=== PATIENT | female | born 1940 | race Caucasian/White ===

== ENCOUNTER 2016-08-13 14:57 | Inpatient (IN) | payer MEDICARE, OTHER ==
[~2016-08-13] VITALS: Ht 165.1 cm; Wt 56.7 kg
[2016-08-13] MEDS ORDERED: ACETAMINOPHEN 325 MG TAB ONE (15:18)
[2016-08-13] MEDS ORDERED: SODIUM CHLORIDE 0.9% 1,000 ML ONE (15:27)
[2016-08-13] MEDS ORDERED: CEFTRIAXONE 1 GM VIAL ONE (17:01)
[2016-08-13] MEDS ORDERED: SODIUM CHLORIDE 0.9% 100 ML IV ONE (17:01)
[2016-08-13] MEDS ORDERED: SALINE FLUSH 10 ML FLUSH PRN (17:45)
[2016-08-13] MEDS ORDERED: GUAIFEN/DM 10 ML UDC PO PRN (17:45)
[2016-08-13] MEDS ORDERED: NITROGLYCERIN SL 0.4 MG TAB SL PRN (18:25)
[2016-08-13] MEDS: NEB-ALBUTEROL 2.5 MG/3 ML INH SCH ×2 (18:30→23:39)
[2016-08-13] MEDS: NEB-ATROVENT INH SCH ×2 (18:30→23:39)
[2016-08-13] MEDS ORDERED: MAGNESIUM SULF 1 GM/100 ML 100 ML IV SCH (19:00)
[2016-08-13] MEDS ORDERED: SODIUM CHLORIDE 0.9% 250 ML IV ONE (19:31)
[2016-08-13] MEDS ORDERED: SODIUM CHLORIDE 0.9% 500 ML IV ONE (19:31)
[2016-08-13] MEDS ORDERED: AZITHROMYCIN 500 MG VIAL IV ONE (19:31)
[2016-08-13] MEDS: SALINE FLUSH 10 ML FLUSH SCH (20:00)
[2016-08-13 20:57] VITALS: Ht 165.1 cm; Wt 56.7 kg
[2016-08-13 20:59] VITALS: BP_SYST 104; RESP 16; TEMP 98.5
[2016-08-13] MEDS: MAGNESIUM SULF 1 GM/100 ML 100 ML IV SCH ×2 (21:34→22:56)
[2016-08-13] MEDS: ACETAMINOPHEN 325 MG TAB PO PRN (22:52)
[2016-08-13] MEDS: SODIUM CHLORIDE 0.9% 1,000 ML IV SCH (23:00)
[2016-08-13] MEDS ORDERED: MISSING DOSE XX ONE (23:10)
[2016-08-13 23:11] VITALS: BP_SYST 104; RESP 16; TEMP 98.5
[2016-08-13 23:44] VITALS: RESP 18
[2016-08-14 03:00] VITALS: BP_SYST 122; RESP 18; TEMP 98.2
[2016-08-14] MEDS: SODIUM CHLORIDE 0.9% FLUSH BAG 500 ML IV SCH (04:05)
[2016-08-14] MEDS: TRAMADOL 50 MG TAB PO SCH ×3 (06:22→21:00)
[2016-08-14] MEDS ORDERED: ONDANSETRON 4 MG VIAL IV PUSH PRN (06:35)
[2016-08-14] MEDS ORDERED: ONDANSETRON 4 MG VIAL ONE (06:36)
[2016-08-14] MEDS: DILAUDID 1 MG/ML AMP IV PRN ×2 (06:43→14:52)
[2016-08-14 07:31] VITALS: BP_SYST 163; RESP 18; TEMP 99.4
[2016-08-14] MEDS: NEB-ALBUTEROL 2.5 MG/3 ML INH SCH ×3 (07:53→23:32)
[2016-08-14] MEDS: NEB-ATROVENT INH SCH ×3 (07:53→23:32)
[2016-08-14] MEDS: AZITHROMYCIN 500 MG in SODIUM CHLORIDE 0.9% 250 ML IV SCH (08:17)
[2016-08-14] MEDS: SALINE FLUSH 10 ML FLUSH SCH ×2 (08:17→20:00)
[2016-08-14] MEDS: ASPIRIN 81 MG CHEW TAB PO SCH (08:18)
[2016-08-14] MEDS: ENOXAPARIN 40 MG/0.4 ML SYR SUBQ SCH (08:18)
[2016-08-14] MEDS: CEFTRIAXONE 1 GM in SODIUM CHLORIDE 0.9% 50 ML IV SCH (09:43)
[2016-08-14] MEDS ORDERED: amLODIPine 10 MG TAB PO SCH (10:20)
[2016-08-14] MEDS ORDERED: ERGOCALCIFEROL 50,000 UNITS (1.25 MG) CAP PO SCH (10:21)
[2016-08-14 11:12] VITALS: BP_SYST 119; RESP 18; TEMP 98.7
[2016-08-14] MEDS: GABAPENTIN 100 MG CAP PO SCH (11:27)
[2016-08-14] MEDS: LISINOPRIL 20 MG TAB PO SCH (11:27)
[2016-08-14] MEDS: PAROXETINE HCL 20 MG TAB PO SCH (11:27)
[2016-08-14] MEDS: LIDOCAINE 2% VISC 15 ML UDC SWISH.SPIT SCH ×2 (11:27→16:00)
[2016-08-14] MEDS: amLODIPine 10 MG TAB PO SCH (12:00)
[2016-08-14] MEDS: SODIUM CHLORIDE 0.9% 1,000 ML IV SCH (14:24)
[2016-08-14 15:22] VITALS: BP_SYST 114; RESP 18; TEMP 98.5
[2016-08-14 19:21] VITALS: BP_SYST 132; RESP 18; TEMP 101.1
[2016-08-14] MEDS ORDERED: OPTIRAY 350 100 ML VIAL HMH IV ONE (20:03)
[2016-08-14] MEDS: clonazePAM 0.5 MG TAB PO SCH (21:00)
[2016-08-14] MEDS: GABAPENTIN 300 MG CAP PO SCH (21:32)
[2016-08-14] MEDS: MELOXICAM 7.5 MG TAB PO SCH (21:32)
[2016-08-14] MEDS: MIRTAZAPINE 15 MG TAB PO SCH (21:32)
[2016-08-14 23:05] VITALS: BP_SYST 105; RESP 20; TEMP 99.1
[2016-08-14] MEDS: ACETAMINOPHEN 325 MG TAB PO PRN (23:54)
[2016-08-15] MEDS: SODIUM CHLORIDE 0.9% FLUSH BAG 500 ML IV SCH
[2016-08-15 03:36] VITALS: BP_SYST 104; RESP 18; TEMP 98.3
[2016-08-15] MEDS: NEB-ALBUTEROL 2.5 MG/3 ML INH SCH ×4 (06:12→23:28)
[2016-08-15] MEDS: NEB-ATROVENT INH SCH ×4 (06:12→23:28)
[2016-08-15] MEDS: TRAMADOL 50 MG TAB PO SCH ×3 (08:09→12:07)
[2016-08-15] MEDS: ASPIRIN 81 MG CHEW TAB PO SCH (08:22)
[2016-08-15] MEDS: CEFTRIAXONE 1 GM in SODIUM CHLORIDE 0.9% 50 ML IV SCH (08:22)
[2016-08-15] MEDS: PAROXETINE HCL 20 MG TAB PO SCH (08:22)
[2016-08-15] MEDS: SALINE FLUSH 10 ML FLUSH SCH ×2 (08:23→20:07)
[2016-08-15] MEDS: LISINOPRIL 20 MG TAB PO SCH (08:24)
[2016-08-15] MEDS: LIDOCAINE 2% VISC 15 ML UDC SWISH.SPIT SCH ×3 (08:24→16:00)
[2016-08-15] MEDS: ENOXAPARIN 40 MG/0.4 ML SYR SUBQ SCH (08:25)
[2016-08-15 08:36] VITALS: BP_SYST 126; RESP 18; TEMP 99.9
[2016-08-15] MEDS: AZITHROMYCIN 500 MG in SODIUM CHLORIDE 0.9% 250 ML IV SCH (09:28)
[2016-08-15 11:27] VITALS: BP_SYST 100; RESP 18; TEMP 97.8
[2016-08-15] MEDS: amLODIPine 10 MG TAB PO SCH (12:00)
[2016-08-15] MEDS: GABAPENTIN 100 MG CAP PO SCH (12:06)
[2016-08-15 14:45] VITALS: BP_SYST 121; RESP 18; TEMP 98.6
[2016-08-15] MEDS ORDERED: MISSING DOSE XX ONE (17:30)
[2016-08-15] MEDS ORDERED: TRAMADOL 50 MG TAB PO SCH (17:40)
[2016-08-15] MEDS: SODIUM CHLORIDE 0.9% 1,000 ML IV SCH (17:44)
[2016-08-15] MEDS: clonazePAM 0.5 MG TAB PO SCH (20:06)
[2016-08-15] MEDS: MIRTAZAPINE 15 MG TAB PO SCH (20:06)
[2016-08-15] MEDS: MELOXICAM 7.5 MG TAB PO SCH (20:07)
[2016-08-15] MEDS: GABAPENTIN 300 MG CAP PO SCH (20:07)
[2016-08-15 20:32] VITALS: BP_SYST 140; RESP 18; TEMP 100
[2016-08-16 00:52] VITALS: BP_SYST 153; RESP 18; TEMP 101.3
[2016-08-16] MEDS: SODIUM CHLORIDE 0.9% FLUSH BAG 500 ML IV SCH (02:04)
[2016-08-16] MEDS: ACETAMINOPHEN 325 MG TAB PO PRN (02:04)
[2016-08-16 03:36] VITALS: BP_SYST 144; RESP 18; TEMP 100.8
[2016-08-16] MEDS: NEB-ALBUTEROL 2.5 MG/3 ML INH SCH ×2 (06:19→11:42)
[2016-08-16] MEDS: NEB-ATROVENT INH SCH ×2 (06:19→11:42)
[2016-08-16] MEDS: LIDOCAINE 2% VISC 15 ML UDC SWISH.SPIT SCH ×2 (06:44→10:30)
[2016-08-16 08:31] VITALS: BP_SYST 148; RESP 18; TEMP 98.7
[2016-08-16] MEDS: ASPIRIN 81 MG CHEW TAB PO SCH (08:46)
[2016-08-16] MEDS: PAROXETINE HCL 20 MG TAB PO SCH (08:46)
[2016-08-16] MEDS: SALINE FLUSH 10 ML FLUSH SCH (08:46)
[2016-08-16] MEDS: LISINOPRIL 20 MG TAB PO SCH (08:46)
[2016-08-16] MEDS: TRAMADOL 50 MG TAB PO SCH ×2 (08:49→12:44)
[2016-08-16] MEDS: ENOXAPARIN 40 MG/0.4 ML SYR SUBQ SCH (08:50)
[2016-08-16] MEDS: CEFTRIAXONE 1 GM in SODIUM CHLORIDE 0.9% 50 ML IV SCH (08:50)
[2016-08-16] MEDS: AZITHROMYCIN 500 MG in SODIUM CHLORIDE 0.9% 250 ML IV SCH (09:58)
[2016-08-16] MEDS: GABAPENTIN 100 MG CAP PO SCH (10:29)
[2016-08-16 10:59] VITALS: BP_SYST 148; RESP 18; TEMP 98.7
[2016-08-16 12:25] VITALS: BP_SYST 142; RESP 18; TEMP 98.6
[2016-08-16] MEDS: amLODIPine 10 MG TAB PO SCH (12:44)
== END 2016-08-16 16:01 | disposition home health service (06) | DRG 193 ==
LOC: ENRESERVTM → ENRESERVDT → ER 14:57 → EMR 18:03 → ENPENDDIS 18:03 → PCU 20:09
PROVIDERS: ADMIT Internal Medicine; ATTEND Internal Medicine
DX: J18.9 Pneumonia, unspecified organism (principal); J96.01 Acute respiratory failure with hypoxia; E87.2 Acidosis; R07.89 Other chest pain; E83.42 Hypomagnesemia; Z85.810 Personal history of malignant neoplasm of tongue; I10 Essential (primary) hypertension; F32.9 Major depressive disorder, single episode, unspecified; F17.210 Nicotine dependence, cigarettes, uncomplicated
CPT/HCPCS: 36415; 71010; 71260; 80048; 80053; 81003; 82550; 82553; 83605; 83735; 84145; 84484; 85025; 85379; 85610; 85730; 87040; 87804; 93005; 94640; 94799; 96361; 96365; 96375; 99232; 99233